=== PATIENT | male | born 1990 | race Caucasian/White ===

== ENCOUNTER 2017-03-18 21:25 | Emergency (ER) | payer SELFPAY ==
[~2017-03-18] VITALS: Ht 175.3 cm; Wt 92.0 kg
[~2017-03-18 21:25] MED LIST: ABCC1C PO
[2017-03-18 21:30] VITALS: Ht 175.3 cm; Wt 92.0 kg
[2017-03-19] MEDS ORDERED: DIPHTH/TET/ACEL PERTUSS (ADULT) 0.5 ML VIAL IM* ONE (02:30)
[2017-03-19] MEDS ORDERED: LIDOCAINE 1% (MDV) 20 ML INJ SC ONE (02:30)
--- NOTE | 2017-03-19 02:43 | ERD ---
ER Documentation Chief Complaint Date/Time DATE: 03/19/17 TIME: 02:42 Chief Complaint c/o left thumb lac x 1 hr. Cut by knife. No active bleeding. HPI 26-year-old male presents here to emergency department for complaints of a laceration wound in the left thumb area, patient was using a knife to cut some wound, approximately superficial layer of the left thumb. Patient denies any joint involvement. Patient's complaint of pain sharp pain 4/10 scale, as was upon touching the area. Patient denies any foreign body in affected area. Patient cleaned wound with alcohol and peroxide afterwards. Patient denies any numbness or tingling. ROS All systems reviewed and are negative except as per history of present illness. Medications Home Meds Active Scripts Ibuprofen* (Motrin*) 600 Mg Tab, 600 MG PO Q6H Y for PAIN AND OR ELEVATED TEMP, #30 TAB Prov:GLEN GRAY NP 03/19/17 Cephalexin* (Keflex*) 500 Mg Capsule, 500 MG PO QID for 5 Days, CAP Prov:GLEN GRAY NP 03/19/17 Hampjghytdgqr-Stpeppemde-Hxbykvyj-Codeine* (Fioricet w/Codeine*) [id number] -30MG Cap, 1 CAP PO Q6 Y for PAIN LEVEL 1-5 for 5 Days, CAP Prov:JUAN ANTONIO WALKER DO 10/19/15 Allergies Allergies: Coded Allergies: No Known Allergy (Unverified , 10/19/15) PMhx/Soc Unknown last tetanus immunization History of Surgery: No Anesthesia Reaction: No Hx Neurological Disorder: Yes (Migraine HAs) Hx Respiratory Disorders: No Hx Cardiac Disorders: No Hx Psychiatric Problems: No Hx Miscellaneous Medical Probl: No Hx Alcohol Use: No Hx Substance Use: No Hx Tobacco Use: Yes (Quit x a while now) Smoking Status: Current every day smoker FmHx Family History: No coronary disease, No diabetes, No other Physical Exam Vitals Vital Signs Date Time Temp Pulse Resp B/P Pulse Ox O2 Delivery O2 Flow Rate FiO2 03/18/17 21:30 98.3 97 18 140/69 98 Physical Exam GENERAL: The patient is well developed and appropriate for usual state of health, in no apparent distress. CHEST: Clear to auscultation bilaterally. There are no rales, wheezes or rhonchi. HEART: Regular rate and rhythm. No murmurs, clicks, rubs or gallops. No S3 or S4. ABDOMEN: Soft, nontender and nondistended. Good bowel sounds. No rebound or guarding. No gross peritonitis. No gross organomegaly or masses. No Short sign or McBurney point tenderness. BACK: No midline or flank tenderness. EXTREMITIES: Equal pulses bilaterally. There is no peripheral clubbing, cyanosis or edema. No focal swelling or erythema. Full range of motion. Grossly neurovascularly intact. NEURO: Alert and oriented. Cranial nerves 2-12 intact. Motor strength in all 4 extremities with 5/5 strength. Sensation grossly intact. Normal speech and gait. SKIN: 2 cm laceration wound noted in the palmar aspect of the left thumb, no foreign body, no joint involvement. There is no apparent rash or petechia. The skin is warm and dry. HEMATOLOGIC AND LYMPHATIC: There is no evidence of excessive bruising or lymphedema. No gross cervical, axillary, or inguinal lymphadenopathy. Results 24 hrs Current Medications Medications (Trade) Dose Ordered Sig/Iwona Route PRN Reason Start Time Stop Time Status Last Admin Dose Admin Lidocaine (Xylocaine 1% (Mdv) 20 ml) 2 ml ONCE ONCE SC 03/19/17 02:30 03/19/17 02:31 DC Diphtheria/ Tetanus/Acell Pertussis (Adacel) 0.5 ml ONCE ONCE IM* 03/19/17 02:30 03/19/17 02:31 DC 03/19/17 02:32 Procedures/MDM Procedure Note: After obtaining informed consent, the wound was irrigated with 250 ml of normal saline and cleaned with diluted betadine. Using aseptic technique, 3 ml of 1% lidocaine was injected on the subcutaneous tissue of the laceration wound for anesthetic. After the anesthetic, the wound was approximated using _4 interrupted sutures of 4-0 Prolene. After the procedure, the wound was well approximated. Patient tolerated procedure well. Bacitracin was applied on the area and a dry dressing. Medical Decision Making: Patient's pain is most likely consistent with with laceration which was repaired. There is no suspicion for neurovascular compromise. Patient has intact sensation and circulation of the affected extremity. There is low suspicion for septic arthritis. Patient does not have any fever. Disposition: Home. Patient is given prescription for ibuprofen for pain, Keflex to prevent infection. Patient was advised to elevate the affected area and apply ice on affected area. Patient was advised that if symptoms are worse, numbness, tingling, high fever, unable to move joint, worsening symptoms, to return to emergency department immediately. Otherwise, patient is advised to follow up with the primary care doctor wound check, suture removal in 7-10 days Disclaimer: Inadvertent spelling and grammatical errors are likely due to EHR/ dictation software use and do not reflect on the overall quality of patient care. Also, please note that the electronic time recorded on this note does not necessarily reflect the actual time of the patient encounter. Departure Diagnosis: Primary Impression: Finger laceration Encounter type: initial encounter Finger: thumb Damage to nail status: without damage Foreign body presence: without foreign body Laterality: left Qualified Code: S61.012A - Laceration of left thumb without foreign body without damage to nail, initial encounter Condition: Stable GLEN GRAY NP Mar 19, 2017 02:43
[2017-03-19] MEDS ORDERED: IBUP-1542 PO (03:20)
[2017-03-19] MEDS ORDERED: CEPH-443 PO (03:20)
== END 2017-03-19 04:13 | disposition home or self-care (01) ==
LOC: FTE 21:25
DX: S61.012A Laceration without foreign body of left thumb without damage to nail, initial encounter (principal); F17.210 Nicotine dependence, cigarettes, uncomplicated; W26.0XXA Contact with knife, initial encounter; Y92.9 Unspecified place or not applicable; Z23 Encounter for immunization
CPT/HCPCS: 90471; 90715